=== PATIENT | male | born 1940 | race Caucasian/White ===

== ENCOUNTER 2017-05-26 14:25 | Emergency (ER) | payer OTHER ==
[~2017-05-26] VITALS: Ht 177.8 cm; Wt 86.2 kg
[2017-05-26 14:29] VITALS: Ht 177.8 cm; Wt 86.2 kg
[2017-05-26 15:04] LABS: PLATELET COUNT 229 x10^3mcL (130-400); RED CELL DISTRIBUTION WIDTH 14.3 % (11.5-14.5)
[2017-05-26 15:07] VITALS: BP 159/89
[2017-05-26 15:12] LABS: CARBON DIOXIDE 25.2 mmol/L (21-32); CHLORIDE SERUM 104 mmol/L (98-107); CREATININE SERUM 1.2 mg/dL (0.7-1.3); GLUCOSE SERUM 109 mg/dL (74-106); POTASSIUM SERUM 3.7 mmol/L (3.5-5.1); SODIUM SERUM 136 mmol/L (136-145)
[2017-05-26 15:17] LABS: ALKALINE PHOSPHATASE 382 U/L (46-116); ALT/SGPT 95 U/L (16-63); AST/SGOT 56 U/L (15-37); BILIRUBIN TOTAL 0.9 mg/dL (0.20-1.00); TOTAL PROTEIN, SERUM 6.8 g/dL (6.4-8.2)
[2017-05-26 15:20] LABS: ALBUMIN 2.7 g/dL (3.4-5.0)
[2017-05-26 15:49] LABS: BAND NEUTROPHIL 5 % (0-10); BASOPHIL 0 % (0-2); MONOCYTE 5 % (0-7); SEGMENTED NEUTROPHILS 71 % (37-75)
[2017-05-26 15:50] LABS: rbc morphology (normal/abnorm) NORMAL (NORMAL)
== END 2017-05-26 15:07 | disposition short-term general hospital (02) ==
LOC: ED 14:25
PROVIDERS: Emergency Medicine
DX: R41.82 Altered mental status, unspecified (principal)
CPT/HCPCS: 36415; 83880